=== PATIENT | male | born 1985 | race Two or more races ===

== ENCOUNTER 2017-03-28 23:14 | Emergency (ER) | payer SELFPAY ==
[~2017-03-28] VITALS: Ht 170.2 cm; Wt 72.6 kg
[~2017-03-28 23:14] MED LIST: TYLENOL EXTRA500 MG ORAL; UNOBMED
[2017-03-28 23:20] VITALS: BP 130/88
--- NOTE | 2017-03-29 02:36 | Emergency Room Report ---
History of Present Illness General Chief Complaint: Alcohol Intoxication Source: Patient, EMS Present Illness HPI Patient was found lying down floor. Patient is unknown onset . he reports drinking heavily earlier in the day. He denies new injuries or pain. The patient was picked up in the street by EMS Allergies: Coded Allergies: UNABLE TO ASSESS (Unverified , 03/10/16) Patient History Past Medical History: see triage record Reviewed Nursing Documentation: PMH: Agreed, PSxH: Agreed Nursing Documentation-PMH Past Medical History Deferred: Pt Cognitively Impaired Review of Systems All Other Systems: limited - by intoxication Physical Exam Vital Signs Date Time Temp Pulse Resp B/P (MAP) Pulse Ox O2 Delivery O2 Flow Rate FiO2 03/28/17 23:08 97.0 110 16 142/100 95 General Appearance: well appearing, no apparent distress, alert, GCS 15 Head: normocephalic, atraumatic ENT: hearing grossly normal, normal voice Neck: full range of motion, supple Respiratory: no respiratory distress, speaking full sentences Gastrointestinal: normal inspection, normal bowel sounds, soft Musculoskeletal: no calf tenderness Neurologic: normal inspection, alert, oriented x3, responsive, normal gait Psychiatric: mood/affect normal Skin: no rash Medical Decision Making Diagnostic Impression: Primary Impression: Acute alcoholic intoxication ER Course Patient was noted to have initially confused mental status. Differential diagnosis included but was not limited to ischemic stroke, subarachnoid hemorrhage, hypoglycemia, spinal cord injury, neurodegenerative disorder, urinary tract infection, hypoxemia. Patient's benign exam and does not appear to require any further imaging or laboratory testing at this time. Patient had gradual improvement of neurologic status. At the time of discharge the patient was alert and ambulatory without assistance. Patient was advised to stop drinking alcohol. The patient is advised to follow up with primary care doctor in 1-2 days. Patient is advised to return if any worsening condition or if any changes in status that are concerning. This report is dictated with [employer] plate corrector software which may occasionally lead to discrepancies related to use of this software. Last Vital Signs Date Time Temp Pulse Resp B/P (MAP) Pulse Ox O2 Delivery O2 Flow Rate FiO2 03/28/17 23:20 97.0 99 16 130/88 95 Status: improved Disposition: HOME, SELF-CARE Condition: Stable Referrals: NOT CHOSEN IPA/,REFERRING (PCP) Renny Pineda Mar 29, 2017 02:36
[2017-03-29 02:47] VITALS: BP 121/69
[2017-03-29 04:57] VITALS: BP 124/64
[2017-03-29 05:13] VITALS: BP 124/64
== END 2017-03-29 05:14 | disposition home or self-care (01) ==
LOC: EDBD 23:14 → EMR 23:31
DX: F10.129 Alcohol abuse with intoxication, unspecified (principal)
CPT/HCPCS: 99284